=== PATIENT | male | born 1945 | race Caucasian/White ===

== ENCOUNTER 2023-03-04 14:39 | Emergency (ER) | payer MEDICARE ==
[2023-03-04 16:16] LABS: Bilirubin Negative (Negative); Blood, Urine 3+ (Negative); CAUTI Indications for Culture Dysuria,urgency,freq; Clarity Turbid (Clear); Glucose, Urine (Dipstick) Normal (Negative); Ketone, Urine Negative (Negative); Leukocyte 250 Leu/uL (Negative); Nitrite Negative (Negative); Protein, Urine (Dipstick) 10 mg/dL (Neg-Trace); RBC/HPF Greater than 50 HPF (0-3); Specific Gravity, Urine 1.014 (1.002-1.036); Squamous Epithelial None Seen HPF (0-3); Urobilinogen Normal mg/dL (Less than 2); WBC/HPF 21-50 HPF (0-3); pH, Urine 6.5 (5.0-9.0)
[2023-03-04 16:17] LABS: Bacteria/HPF 1+ HPF (None Seen)
[2023-03-04 16:18] LABS: Urine Culture Reflex Yes Yes
== END 2023-03-04 19:25 | disposition home or self-care (01) ==
LOC: ERS 14:39
DX: T83.091A Other mechanical complication of indwelling urethral catheter, initial encounter (principal); N18.9 Chronic kidney disease, unspecified
CPT/HCPCS: 51702; 81001; 87086; 99283

== ENCOUNTER 2023-04-15 21:05 | Inpatient (IN) | payer MEDICARE ==
[~2023-04-15 21:05] MED LIST: Iopamidol-370 76% 500 ML MDV (1 ML CHARGE) ONE
[2023-04-15 21:44] LABS: #Basophils 0.1 thou/uL (0.0-0.2); #Neutrophils 15.3 thou/uL (1.40-6.50); %Basophils 0.3 % (0.0-1.0); %Eosinophils 0.1 % (0.0-10.0); %Lymphocytes 9.8 % (21.0-51.0); %Monocytes 5.7 % (0.0-10.0); %Neutrophils 83.2 % (42.0-75.0); Hemoglobin 14.3 g/dL (14.0-18.0); Mean Corpuscular HGB CONC 33.3 g/dL (32.0-36.0); Mean Corpuscular Hemoglobin 29.8 pg (27.0-31.0); Mean Corpuscular Volume 89.6 fl (78.0-98.0); Mean Platelet Volume 10.1 fL (7.4-10.4); Platelet Count 190 10x3/uL (130-400); RBC Distribution Width 15.7 % (11.5-14.5); White Blood Cell (WBC) Count 18.4 10x3/uL (4.8-10.8)
[2023-04-15 21:47] LABS: Bacteria/HPF 4+ HPF (None Seen); Bilirubin Negative (Negative); Blood, Urine 1+ (Negative); CAUTI Indications for Culture Dysuria,urgency,freq; Clarity Turbid (Clear); Glucose, Urine (Dipstick) Normal (Negative); Ketone, Urine Negative (Negative); Leukocyte 500 Leu/uL (Negative); Nitrite Negative (Negative); Protein, Urine (Dipstick) 10 mg/dL (Neg-Trace); Specific Gravity, Urine 1.016 (1.002-1.036); Squamous Epithelial None Seen HPF (0-3); Urobilinogen Normal mg/dL (Less than 2); WBC/HPF Greater than 50 HPF (0-3); pH, Urine 5.5 (5.0-9.0)
[2023-04-15 21:50] LABS: Urine Culture Reflex Yes Yes
[2023-04-15 22:28] LABS: ALT (SGPT) 10 U/L (8-55); AST (SGOT) 33 U/L (5-34); Albumin 3.8 g/dL (3.4-4.8); Alkaline Phosphatase 1095 U/L (40-110); Anion Gap 14 mmol/L (10-20); BUN (Urea Nitrogen) 22 mg/dL (8.4-25.7); Bilirubin, Total 0.9 mg/dL (0.2-1.2); Calc. Creatinine Clearance 0 mL/min (70-130); Calcium 9.4 mg/dL (7.8-10.44); Carbon Dioxide 23 mmol/L (23-31); Chloride 102 mmol/L (98-107); Estimated GFR 56; Globulin 3.9 g/dL (2.4-3.5); Glucose 185 mg/dL (83-110); Potassium 4.3 mmol/L (3.5-5.1); Protein, Total 7.7 g/dL (5.8-8.1); Sodium 135 mmol/L (136-145)
[2023-04-16] MEDS ORDERED: Polyethylene Glycol 3350 17 GM Packet ONE ×2 (02:00→02:14)
[2023-04-16] MEDS ORDERED: diphenhydrAMINE 50 MG/ML VIAL ONE (02:00)
[2023-04-16] MEDS ORDERED: cefTRIAXone (ROCEPHIN) 1 GM VIAL ONE (02:00)
[2023-04-16] MEDS ORDERED: Sodium Chloride 0.9% 100 ML ONE (02:00)
[2023-04-16] MEDS ORDERED: Magnevist 469MG/ML 20 ML VIAL ONE ×3 (11:34)
[2023-04-16] MEDS ORDERED: Morphine 4 MG/ML VIAL ONE ×2 (13:34→14:58)
[2023-04-16] MEDS ORDERED: Acetaminophen 650 MG Suppository PR PRN (15:32)
[2023-04-16] MEDS ORDERED: Ondansetron PF 4 MG/2 ML Vial IVP PRN ×2 (15:32→21:52)
[2023-04-16] MEDS ORDERED: Moisturizing Cream (Eucerin) 113 GM JAR TOP PRN (15:32)
[2023-04-16] MEDS ORDERED: Sodium Chloride 0.65% Nasal 44 ML BOT EA NARE PRN (15:32)
[2023-04-16] MEDS ORDERED: Benzonatate 100 MG CAP PO PRN (15:32)
[2023-04-16] MEDS ORDERED: Ondansetron ODT 4 MG TAB PO PRN (15:32)
[2023-04-16] MEDS ORDERED: Benzocaine/Menthol 1 LOZ LOZ PO PRN (15:32)
[2023-04-16] MEDS ORDERED: diphenhydrAMINE 25 MG CAP PO PRN ×2 (15:32→21:52)
[2023-04-16] MEDS ORDERED: Acetaminophen 325 MG TAB PO PRN (15:32)
[2023-04-16] MEDS ORDERED: Piperacillin/Tazobactam 3.375 GM in Sodium Chloride 0.9% 100 ML IVPB SCH ×2 (15:45→16:00)
[2023-04-16] MEDS ORDERED: Morphine 2 MG/ML VIAL SLOW IVP PRN (17:48)
[2023-04-16] MEDS ORDERED: Bacitracin Zinc Ointment 30 gm TUBE ONE (17:55)
[2023-04-16] MEDS ORDERED: Fentanyl 250 MCG/5 ML VIAL ONE (17:55)
[2023-04-16] MEDS ORDERED: Vancomycin 1 GM VIAL ONE (17:55)
[2023-04-16] MEDS ORDERED: PROPOFOL 20 ML ONE (17:55)
[2023-04-16] MEDS ORDERED: Thrombin 5000 UNITS/5 ML VIAL ONE (17:56)
[2023-04-16] MEDS ORDERED: Lidocaine 1% PF 5 ML VIAL ONE (17:57)
[2023-04-16] MEDS ORDERED: Rocuronium Bromide 10 MG/ML (10ML VIAL) ONE (17:57)
[2023-04-16] MEDS ORDERED: CEFAZOLIN 1 GM VIAL ONE (19:02)
[2023-04-16] MEDS ORDERED: Sterile Water 20 ML ONE (19:03)
[2023-04-16] MEDS ORDERED: Bupivacaine PF 0.5% 30 ML VIAL ONE (19:10)
[2023-04-16] MEDS ORDERED: EPINEPHrine 1 MG/ML VIAL ONE (19:10)
[2023-04-16] MEDS ORDERED: Calcium Chloride 1 GM/10 ML Abboject SYRINGE ONE (19:15)
[2023-04-16] MEDS ORDERED: PHENYLEPHRINE-NS 100 MCG/ML 10 ML SYRINGE ONE (19:15)
[2023-04-16] MEDS ORDERED: Vasopressin 20 UNITS/ML VIAL ONE (19:29)
[2023-04-16] MEDS ORDERED: Dexamethasone 20 MG/5 ML VIAL ONE (19:33)
[2023-04-16] MEDS ORDERED: Vecuronium 10 MG VIAL ONE (19:43)
[2023-04-16] MEDS ORDERED: Ondansetron PF 4 MG/2 ML Vial ONE (20:43)
[2023-04-16] MEDS ORDERED: Promethazine HCl 25 MG/ML VIAL IM PRN ×2 (21:15→21:52)
[2023-04-16] MEDS ORDERED: Morphine Sulfate 2 MG/ML SYRINGE SLOW IVP PRN (21:15)
[2023-04-16] MEDS ORDERED: Ondansetron HCl/PF 4 MG/2 ML Vial IVP PRN (21:15)
[2023-04-16] MEDS ORDERED: PACU-Morphine 4MG/ML VIAL SLOW IVP PRN (21:15)
[2023-04-16] MEDS ORDERED: HYDROmorphone 2 MG/ML VIAL SLOW IVP PRN (21:15)
[2023-04-16] MEDS ORDERED: SUGAMMADEX SODIUM 200 MG/2 ML VIAL ONE (21:16)
[2023-04-16] MEDS ORDERED: Milk Of Magnesia 30 ML UDCUP PO PRN (21:29)
[2023-04-16] MEDS ORDERED: tiZANidine HCl 4 MG TAB PO PRN (21:32)
[2023-04-16] MEDS ORDERED: Naloxone HCl 0.4 mg/ml Vial IV PRN (21:52)
[2023-04-16] MEDS ORDERED: diphenhydrAMINE 50 MG/ML VIAL IVP PRN (21:52)
[2023-04-16] MEDS ORDERED: diphenhydrAMINE 50 MG/ML VIAL IM PRN (21:52)
[2023-04-16] MEDS ORDERED: Communication Order-Pharmacy FS SCH (22:00)
[2023-04-16] MEDS ORDERED: HYDROmorphone/PF 10 MG in Sodium Chloride 0.9% 99 ML IV PRN (22:15)
[2023-04-16] MEDS: Famotidine 20 MG TAB PO SCH (23:17)
[2023-04-16] MEDS: Famotidine/PF 20 mg/2ml Vial SLOW IVP SCH (23:32)
[2023-04-16] MEDS: Sodium Chloride 0.9% 1,000 ML IV SCH (23:33)
[2023-04-16] MEDS: Piperacillin/Tazobactam 3.375 GM in Sodium Chloride 0.9% 100 ML IVPB SCH (23:33)
[2023-04-17] MEDS: CEFAZOLIN 2 GM in Sodium Chloride 0.9% 100 ML IVPB SCH ×3 (03:38→20:23)
[2023-04-17 06:01] LABS: #Monocytes 0.6 thou/uL (0.11-0.59); #Neutrophils 12.6 thou/uL (1.40-6.50); %Basophils 0.1 % (0.0-1.0); %Lymphocytes 7.7 % (21.0-51.0); %Neutrophils 87.3 % (42.0-75.0); Hematocrit 35.3 % (42.0-52.0); Hemoglobin 11.7 g/dL (14.0-18.0); Mean Corpuscular HGB CONC 33.1 g/dL (32.0-36.0); Mean Corpuscular Volume 90.5 fl (78.0-98.0); Mean Platelet Volume 9.9 fL (7.4-10.4); Platelet Count 191 10x3/uL (130-400); RBC Distribution Width 15.3 % (11.5-14.5); White Blood Cell (WBC) Count 14.5 10x3/uL (4.8-10.8)
[2023-04-17] MEDS: Piperacillin/Tazobactam 3.375 GM in Sodium Chloride 0.9% 100 ML IVPB SCH ×3 (06:10→21:45)
[2023-04-17] MEDS: Dexamethasone 4 MG TAB PO SCH ×3 (06:11→18:41)
[2023-04-17 06:25] LABS: Anion Gap 13 mmol/L (10-20); BUN (Urea Nitrogen) 20 mg/dL (8.4-25.7); Calc. Creatinine Clearance 0 mL/min (70-130); Calcium 8.4 mg/dL (7.8-10.44); Carbon Dioxide 23 mmol/L (23-31); Chloride 102 mmol/L (98-107); Estimated GFR 68; Glucose 209 mg/dL (83-110); Potassium 4.6 mmol/L (3.5-5.1); Sodium 133 mmol/L (136-145)
[2023-04-17] MEDS ORDERED: Dextrose 5% in Water 1,000 ML IV PRN (07:43)
[2023-04-17] MEDS ORDERED: Glucagon 1 MG/ML KIT IM PRN (07:43)
[2023-04-17] MEDS ORDERED: HumaLOG 300 UNITS/3 ML VIAL SC PRN (07:43)
[2023-04-17] MEDS ORDERED: Dextrose 50% Abboject 50 ML SYRINGE SLOW IVP PRN (07:43)
[2023-04-17] MEDS ORDERED: Ketorolac Tromethamine 30 MG (1 mL) VIAL IVP PRN (07:53)
[2023-04-17] MEDS ORDERED: HYDROcodone/Acetaminophen 10/325 mg Tablet PO PRN (07:56)
[2023-04-17] MEDS ORDERED: Diazepam 5 MG TAB PO PRN (07:56)
[2023-04-17] MEDS ORDERED: Morphine 2 MG/ML VIAL SLOW IVP PRN (07:58)
[2023-04-17] MEDS ORDERED: tiZANidine HCl 4 MG TAB PO PRN (07:59)
[2023-04-17] MEDS ORDERED: FLU VACC QS2023(65UP)/MF59C/PF 60 MCG/0.5 ML SYRINGE IM ONE (09:00)
[2023-04-17] MEDS ORDERED: Enoxaparin 40 MG (0.4 mL) SYRINGE SC SCH ×2 (09:00→10:45)
[2023-04-17] MEDS: Famotidine 20 MG TAB PO SCH ×2 (10:23→20:26)
[2023-04-17] MEDS: Docusate 100 MG CAP PO SCH ×2 (10:23→20:25)
[2023-04-17] MEDS: Doxepin HCl 25 MG CAP PO SCH (10:25)
[2023-04-17] MEDS: Pilocarpine 1% Ophth Drops 15 ML BOT EA EYE SCH (10:34)
[2023-04-17] MEDS: Famotidine/PF 20 mg/2ml Vial SLOW IVP SCH ×2 (10:35→21:41)
[2023-04-17] MEDS ORDERED: Doxazosin Mesylate 1 MG TAB PO SCH (10:45)
[2023-04-17] MEDS: Atorvastatin Calcium 20 MG TAB PO SCH (20:25)
[2023-04-17] MEDS: Doxazosin Mesylate 1 MG TAB PO SCH (20:25)
[2023-04-17] MEDS: Zolpidem Tartrate 5 MG TAB PO SCH (20:25)
[2023-04-18] MEDS: Dexamethasone 4 MG TAB PO SCH ×5 (00:41→23:26)
[2023-04-18] MEDS: CEFAZOLIN 2 GM in Sodium Chloride 0.9% 100 ML IVPB SCH ×3 (04:04→20:12)
[2023-04-18] MEDS: Sodium Chloride 0.9% 1,000 ML IV SCH ×2 (04:09→04:10)
[2023-04-18] MEDS: Piperacillin/Tazobactam 3.375 GM in Sodium Chloride 0.9% 100 ML IVPB SCH (05:54)
[2023-04-18 06:04] LABS: Hemoglobin A1c 6.2 % (4.0-6.0)
[2023-04-18] MEDS: Bicalutamide 50 MG TAB PO SCH (09:37)
[2023-04-18] MEDS: Docusate 100 MG CAP PO SCH ×2 (09:38→20:16)
[2023-04-18] MEDS: Famotidine 20 MG TAB PO SCH ×2 (09:38→20:15)
[2023-04-18] MEDS: Doxazosin Mesylate 1 MG TAB PO SCH ×2 (09:38→20:15)
[2023-04-18] MEDS: Acetaminophen/Codeine 30-300mg Tablet PO PRN (09:38)
[2023-04-18] MEDS: Pilocarpine 1% Ophth Drops 15 ML BOT EA EYE SCH (09:39)
[2023-04-18] MEDS: Doxepin HCl 25 MG CAP PO SCH (09:39)
[2023-04-18] MEDS: Famotidine/PF 20 mg/2ml Vial SLOW IVP SCH ×2 (09:39→22:08)
[2023-04-18] MEDS: Enoxaparin 40 MG (0.4 mL) SYRINGE SC SCH (09:39)
[2023-04-18 13:34] VITALS: BMI 21.3
[2023-04-18] MEDS: HumaLOG 300 UNITS/3 ML VIAL SC PRN (18:06)
[2023-04-18] MEDS ORDERED: Polyvinyl Alcohol 1.4%/Povidone 0.6% Opth Drops EA EYE PRN (19:44)
[2023-04-18] MEDS: Zolpidem Tartrate 5 MG TAB PO SCH (20:15)
[2023-04-18] MEDS: Atorvastatin Calcium 20 MG TAB PO SCH (20:16)
[2023-04-18] MEDS: Artificial Tear Sol 15 ML BOT EA EYE PRN (23:26)
[2023-04-19] MEDS: Sodium Chloride 0.9% 1,000 ML IV SCH ×3 (02:32→16:50)
[2023-04-19] MEDS: CEFAZOLIN 2 GM in Sodium Chloride 0.9% 100 ML IVPB SCH ×3 (04:18→22:39)
[2023-04-19 06:10] LABS: #Monocytes 0.6 thou/uL (0.11-0.59); #Neutrophils 9.5 thou/uL (1.40-6.50); %Basophils 0.2 % (0.0-1.0); %Lymphocytes 10.8 % (21.0-51.0); %Neutrophils 82.7 % (42.0-75.0); Hematocrit 29.7 % (42.0-52.0); Hemoglobin 9.7 g/dL (14.0-18.0); Mean Corpuscular HGB CONC 32.7 g/dL (32.0-36.0); Mean Corpuscular Hemoglobin 29.3 pg (27.0-31.0); Mean Corpuscular Volume 89.7 fl (78.0-98.0); Mean Platelet Volume 10.6 fL (7.4-10.4); Platelet Count 181 10x3/uL (130-400); RBC Distribution Width 15.2 % (11.5-14.5); Red Blood Cell (RBC) Count 3.31 mill/uL (4.70-6.10); White Blood Cell (WBC) Count 11.4 10x3/uL (4.8-10.8)
[2023-04-19 06:36] LABS: Anion Gap 14 mmol/L (10-20); BUN (Urea Nitrogen) 24 mg/dL (8.4-25.7); Calc. Creatinine Clearance 47 mL/min (70-130); Calcium 8.3 mg/dL (7.8-10.44); Carbon Dioxide 23 mmol/L (23-31); Chloride 105 mmol/L (98-107); Estimated GFR 58; Glucose 189 mg/dL (83-110); Sodium 138 mmol/L (136-145)
[2023-04-19] MEDS: Dexamethasone 4 MG TAB PO SCH (06:43)
[2023-04-19] MEDS: HumaLOG 300 UNITS/3 ML VIAL SC PRN (06:43)
[2023-04-19] MEDS: Doxepin HCl 25 MG CAP PO SCH ×2 (09:50→22:39)
[2023-04-19] MEDS: Docusate 100 MG CAP PO SCH ×2 (09:50→22:38)
[2023-04-19] MEDS: Enoxaparin 40 MG (0.4 mL) SYRINGE SC SCH (09:51)
[2023-04-19] MEDS: Doxazosin Mesylate 1 MG TAB PO SCH ×2 (09:52→22:36)
[2023-04-19] MEDS: Bicalutamide 50 MG TAB PO SCH (09:52)
[2023-04-19] MEDS: Famotidine 20 MG TAB PO SCH ×2 (09:52→22:38)
[2023-04-19] MEDS: Pilocarpine 1% Ophth Drops 15 ML BOT EA EYE SCH (09:53)
[2023-04-19] MEDS: Famotidine/PF 20 mg/2ml Vial SLOW IVP SCH ×2 (09:54→23:16)
[2023-04-19] MEDS ORDERED: Dexamethasone 1 MG TAB PO SCH (12:00)
[2023-04-19] MEDS: Zolpidem Tartrate 5 MG TAB PO SCH (22:37)
[2023-04-19] MEDS: Atorvastatin Calcium 20 MG TAB PO SCH (22:38)
[2023-04-19] MEDS: Dexamethasone 1 MG TAB PO SCH (22:38)
[2023-04-20] MEDS: Acetaminophen/Codeine 30-300mg Tablet PO PRN (03:22)
[2023-04-20] MEDS: CEFAZOLIN 2 GM in Sodium Chloride 0.9% 100 ML IVPB SCH ×3 (03:22→22:37)
[2023-04-20] MEDS: Dexamethasone 1 MG TAB PO SCH ×4 (03:22→22:37)
[2023-04-20] MEDS: HumaLOG 300 UNITS/3 ML VIAL SC PRN ×3 (06:30→18:15)
[2023-04-20 06:42] LABS: #Monocytes 0.6 thou/uL (0.11-0.59); %Basophils 0.2 % (0.0-1.0); %Lymphocytes 14.8 % (21.0-51.0); %Monocytes 6.7 % (0.0-10.0); %Neutrophils 76.6 % (42.0-75.0); Hematocrit 30.4 % (42.0-52.0); Mean Corpuscular HGB CONC 32.9 g/dL (32.0-36.0); Mean Corpuscular Volume 91.3 fl (78.0-98.0); Mean Platelet Volume 10.6 fL (7.4-10.4); Platelet Count 202 10x3/uL (130-400); RBC Distribution Width 15.3 % (11.5-14.5); Red Blood Cell (RBC) Count 3.33 mill/uL (4.70-6.10); White Blood Cell (WBC) Count 9.2 10x3/uL (4.8-10.8)
[2023-04-20] MEDS: Sodium Chloride 0.9% 1,000 ML IV SCH ×2 (08:16→20:17)
[2023-04-20] MEDS: Famotidine 20 MG TAB PO SCH ×2 (09:17→22:36)
[2023-04-20] MEDS: Doxazosin Mesylate 1 MG TAB PO SCH ×2 (09:17→22:35)
[2023-04-20] MEDS: Pilocarpine 1% Ophth Drops 15 ML BOT EA EYE SCH (09:18)
[2023-04-20] MEDS: Bicalutamide 50 MG TAB PO SCH (09:18)
[2023-04-20] MEDS: Enoxaparin 40 MG (0.4 mL) SYRINGE SC SCH (09:18)
[2023-04-20] MEDS: Famotidine/PF 20 mg/2ml Vial SLOW IVP SCH ×2 (09:18→22:37)
[2023-04-20] MEDS: Docusate 100 MG CAP PO SCH ×2 (09:19→22:36)
[2023-04-20] MEDS: Artificial Tear Sol 15 ML BOT EA EYE PRN (09:22)
[2023-04-20] MEDS: Zolpidem Tartrate 5 MG TAB PO SCH (22:36)
[2023-04-20] MEDS: Atorvastatin Calcium 20 MG TAB PO SCH (22:36)
[2023-04-20] MEDS: Doxepin HCl 25 MG CAP PO SCH (22:37)
[2023-04-21] MEDS: Dexamethasone 1 MG TAB PO SCH ×4 (03:34→21:37)
[2023-04-21] MEDS: CEFAZOLIN 2 GM in Sodium Chloride 0.9% 100 ML IVPB SCH (03:34)
[2023-04-21 05:59] LABS: #Basophils 0.1 thou/uL (0.0-0.2); #Monocytes 0.8 thou/uL (0.11-0.59); #Neutrophils 8.5 thou/uL (1.40-6.50); %Basophils 0.4 % (0.0-1.0); %Lymphocytes 16.5 % (21.0-51.0); %Monocytes 7.2 % (0.0-10.0); %Neutrophils 72.5 % (42.0-75.0); Hemoglobin 11.4 g/dL (14.0-18.0); Mean Corpuscular HGB CONC 32.6 g/dL (32.0-36.0); Mean Corpuscular Hemoglobin 29.4 pg (27.0-31.0); Mean Corpuscular Volume 90.2 fl (78.0-98.0); Mean Platelet Volume 10.3 fL (7.4-10.4); Platelet Count 235 10x3/uL (130-400); RBC Distribution Width 15.1 % (11.5-14.5); Red Blood Cell (RBC) Count 3.88 mill/uL (4.70-6.10); White Blood Cell (WBC) Count 11.7 10x3/uL (4.8-10.8)
[2023-04-21] MEDS: HumaLOG 300 UNITS/3 ML VIAL SC PRN (06:26)
[2023-04-21 06:46] LABS: Anion Gap 15 mmol/L (10-20); BUN (Urea Nitrogen) 22 mg/dL (8.4-25.7); Calc. Creatinine Clearance 63 mL/min (70-130); Calcium 8.4 mg/dL (7.8-10.44); Carbon Dioxide 25 mmol/L (23-31); Chloride 102 mmol/L (98-107); Estimated GFR 82; Glucose 158 mg/dL (83-110); Potassium 4.5 mmol/L (3.5-5.1); Sodium 137 mmol/L (136-145)
[2023-04-21] MEDS: Artificial Tear Sol 15 ML BOT EA EYE PRN ×2 (09:56→15:21)
[2023-04-21] MEDS: Pilocarpine 1% Ophth Drops 15 ML BOT EA EYE SCH (09:56)
[2023-04-21] MEDS: Famotidine 20 MG TAB PO SCH ×2 (09:57→21:37)
[2023-04-21] MEDS: Doxazosin Mesylate 1 MG TAB PO SCH ×2 (09:57→21:37)
[2023-04-21] MEDS: Acetaminophen/Codeine 30-300mg Tablet PO PRN ×2 (09:58→21:38)
[2023-04-21] MEDS: Enoxaparin 40 MG (0.4 mL) SYRINGE SC SCH (09:58)
[2023-04-21] MEDS: Bicalutamide 50 MG TAB PO SCH (09:58)
[2023-04-21] MEDS: Docusate 100 MG CAP PO SCH ×2 (09:59→21:38)
[2023-04-21] MEDS: Sodium Chloride 0.9% 1,000 ML IV SCH ×2 (10:00→22:47)
[2023-04-21] MEDS ORDERED: Dexamethasone 1 MG TAB PO SCH (12:00)
[2023-04-21] MEDS: Polyvinyl Alcohol 1.4%/Povidone 0.6% Opth Drops EA EYE SCH ×2 (15:53→21:44)
[2023-04-21] MEDS: Doxepin HCl 25 MG CAP PO SCH (21:36)
[2023-04-21] MEDS: Zolpidem Tartrate 5 MG TAB PO SCH (21:37)
[2023-04-21] MEDS: Atorvastatin Calcium 20 MG TAB PO SCH (21:38)
[2023-04-22] MEDS: Dexamethasone 1 MG TAB PO SCH ×2 (03:10→09:06)
[2023-04-22 05:20] LABS: #Monocytes 1.1 thou/uL (0.11-0.59); #Neutrophils 10.8 thou/uL (1.40-6.50); %Basophils 0.3 % (0.0-1.0); %Eosinophils 0.1 % (0.0-10.0); %Lymphocytes 16.9 % (21.0-51.0); %Monocytes 7.4 % (0.0-10.0); %Neutrophils 70.7 % (42.0-75.0); Hemoglobin 11.3 g/dL (14.0-18.0); Mean Corpuscular HGB CONC 33.2 g/dL (32.0-36.0); Mean Corpuscular Hemoglobin 30.2 pg (27.0-31.0); Mean Corpuscular Volume 90.9 fl (78.0-98.0); Mean Platelet Volume 10.2 fL (7.4-10.4); Platelet Count 250 10x3/uL (130-400); RBC Distribution Width 15.1 % (11.5-14.5); Red Blood Cell (RBC) Count 3.74 mill/uL (4.70-6.10); White Blood Cell (WBC) Count 15.2 10x3/uL (4.8-10.8)
[2023-04-22 05:48] LABS: Anion Gap 10 mmol/L (10-20); BUN (Urea Nitrogen) 24 mg/dL (8.4-25.7); Calc. Creatinine Clearance 63 mL/min (70-130); Calcium 8.2 mg/dL (7.8-10.44); Carbon Dioxide 26 mmol/L (23-31); Chloride 103 mmol/L (98-107); Estimated GFR 82; Glucose 160 mg/dL (83-110); Sodium 135 mmol/L (136-145)
[2023-04-22] MEDS: Bicalutamide 50 MG TAB PO SCH (09:06)
[2023-04-22] MEDS: Famotidine 20 MG TAB PO SCH ×2 (09:06→20:08)
[2023-04-22] MEDS: Doxazosin Mesylate 1 MG TAB PO SCH (09:06)
[2023-04-22] MEDS: Docusate 100 MG CAP PO SCH ×2 (09:06→20:10)
[2023-04-22] MEDS: Pilocarpine 1% Ophth Drops 15 ML BOT EA EYE SCH (09:11)
[2023-04-22] MEDS: Polyvinyl Alcohol 1.4%/Povidone 0.6% Opth Drops EA EYE SCH ×3 (09:12→23:35)
[2023-04-22] MEDS: Enoxaparin 40 MG (0.4 mL) SYRINGE SC SCH (09:12)
[2023-04-22] MEDS: Sodium Chloride 0.9% 1,000 ML IV SCH (13:24)
[2023-04-22] MEDS: Acetaminophen/Codeine 30-300mg Tablet PO PRN ×2 (13:32→20:08)
[2023-04-22] MEDS: Zolpidem Tartrate 5 MG TAB PO SCH (20:08)
[2023-04-22] MEDS: Atorvastatin Calcium 20 MG TAB PO SCH (20:08)
[2023-04-22] MEDS: Senokot S 8.6-50 MG TAB PO SCH (20:08)
[2023-04-22] MEDS: Doxepin HCl 25 MG CAP PO SCH (20:10)
[2023-04-23] MEDS: Sodium Chloride 0.9% 1,000 ML IV SCH ×2 (02:48→14:55)
[2023-04-23 05:27] LABS: Hematocrit 35.2 % (42.0-52.0); Hemoglobin 11.4 g/dL (14.0-18.0); Manual Diff?? YES; Mean Corpuscular HGB CONC 32.4 g/dL (32.0-36.0); Mean Corpuscular Hemoglobin 29.4 pg (27.0-31.0); Mean Corpuscular Volume 90.7 fl (78.0-98.0); Mean Platelet Volume 10.4 fL (7.4-10.4); Platelet Count 251 10x3/uL (130-400); RBC Distribution Width 15.7 % (11.5-14.5); Red Blood Cell (RBC) Count 3.88 mill/uL (4.70-6.10); White Blood Cell (WBC) Count 16.3 10x3/uL (4.8-10.8)
[2023-04-23 05:41] LABS: Delete Auto Diff?? YES
[2023-04-23 05:45] LABS: Anion Gap 11 mmol/L (10-20); BUN (Urea Nitrogen) 26 mg/dL (8.4-25.7); Calc. Creatinine Clearance 68 mL/min (70-130); Calcium 8.1 mg/dL (7.8-10.44); Carbon Dioxide 25 mmol/L (23-31); Chloride 103 mmol/L (98-107); Estimated GFR 88; Glucose 136 mg/dL (83-110); Potassium 3.9 mmol/L (3.5-5.1); Sodium 135 mmol/L (136-145)
[2023-04-23 06:17] LABS: CellaVision Operator ID lab.abc; Eosinophils 1 % (0-10); Lymphocytes 21 % (21-51); Monocytes 7 % (0-10); Myelocyte 2 % (0-0); Neutrophil 62 % (42-75); Platelet Adequacy Comment Platelets Increased; Polychromasia SLIGHT = 2-3 cells HPF (0-2); RBC Morphology Within Normal Limits; Reactive Lymphocytes 7 % (0-10); Total Cell Count 100
[2023-04-23] MEDS: Senokot S 8.6-50 MG TAB PO SCH ×2 (08:10→20:26)
[2023-04-23] MEDS: Famotidine 20 MG TAB PO SCH ×2 (08:10→20:26)
[2023-04-23] MEDS: Docusate 100 MG CAP PO SCH ×2 (08:10→20:26)
[2023-04-23] MEDS: Polyvinyl Alcohol 1.4%/Povidone 0.6% Opth Drops EA EYE SCH ×3 (08:10→20:26)
[2023-04-23] MEDS: Enoxaparin 40 MG (0.4 mL) SYRINGE SC SCH (08:11)
[2023-04-23] MEDS: Pilocarpine 1% Ophth Drops 15 ML BOT EA EYE SCH (08:12)
[2023-04-23] MEDS: Acetaminophen/Codeine 30-300mg Tablet PO PRN (09:57)
[2023-04-23] MEDS ORDERED: Dexamethasone 1 MG TAB PO SCH (12:00)
[2023-04-23] MEDS: Bicalutamide 50 MG TAB PO SCH (13:03)
[2023-04-23] MEDS: HYDROcodone/Acetaminophen 5/325 mg Tablet PO PRN ×2 (13:08→20:45)
[2023-04-23] MEDS: Zolpidem Tartrate 5 MG TAB PO SCH (20:25)
[2023-04-23] MEDS: Doxepin HCl 25 MG CAP PO SCH (20:26)
[2023-04-23] MEDS: Atorvastatin Calcium 20 MG TAB PO SCH (20:26)
[2023-04-24] MEDS: Sodium Chloride 0.9% 1,000 ML IV SCH ×2 (02:28→18:12)
[2023-04-24 06:43] LABS: Hematocrit 35.7 % (42.0-52.0); Hemoglobin 11.7 g/dL (14.0-18.0); Manual Diff?? YES; Mean Corpuscular HGB CONC 32.8 g/dL (32.0-36.0); Mean Corpuscular Volume 91.5 fl (78.0-98.0); Mean Platelet Volume 10.2 fL (7.4-10.4); Platelet Count 237 10x3/uL (130-400); RBC Distribution Width 15.9 % (11.5-14.5); White Blood Cell (WBC) Count 18.1 10x3/uL (4.8-10.8)
[2023-04-24 07:08] LABS: Delete Auto Diff?? YES
[2023-04-24 07:22] LABS: ALT (SGPT) 7 U/L (8-55); AST (SGOT) 13 U/L (5-34); Alkaline Phosphatase 515 U/L (40-110); Anion Gap 11 mmol/L (10-20); BUN (Urea Nitrogen) 26 mg/dL (8.4-25.7); Calc. Creatinine Clearance 58 mL/min (70-130); Calcium 8.3 mg/dL (7.8-10.44); Carbon Dioxide 27 mmol/L (23-31); Chloride 102 mmol/L (98-107); Estimated GFR 75; Globulin 2.9 g/dL (2.4-3.5); Glucose 120 mg/dL (83-110); Potassium 4.3 mmol/L (3.5-5.1); Protein, Total 5.9 g/dL (5.8-8.1); Sodium 136 mmol/L (136-145)
[2023-04-24 08:16] LABS: Band 3 % (5-11); CellaVision Operator ID LAB.KW3; Eosinophils 2 % (0-10); Large Platelets 0.9 % (0-5); Lymphocytes 3 % (21-51); Monocytes 7 % (0-10); Neutrophil 81 % (42-75); Platelet Adequacy Comment Platelets Normal; Reactive Lymphocytes 6 % (0-10); Total Cell Count 108
[2023-04-24 09:17] LABS: Burr Cells SLIGHT = 2-5 cells (100X) (0-1/hpf)
[2023-04-24] MEDS: HYDROcodone/Acetaminophen 5/325 mg Tablet PO PRN ×2 (09:51→15:04)
[2023-04-24] MEDS: Bicalutamide 50 MG TAB PO SCH (09:52)
[2023-04-24] MEDS: Docusate 100 MG CAP PO SCH ×2 (09:52→21:09)
[2023-04-24] MEDS: Polyvinyl Alcohol 1.4%/Povidone 0.6% Opth Drops EA EYE SCH ×3 (09:52→21:15)
[2023-04-24] MEDS: Famotidine 20 MG TAB PO SCH ×2 (09:52→21:08)
[2023-04-24] MEDS: Senokot S 8.6-50 MG TAB PO SCH ×2 (09:52→21:09)
[2023-04-24] MEDS: Enoxaparin 40 MG (0.4 mL) SYRINGE SC SCH (09:52)
[2023-04-24] MEDS: Pilocarpine 1% Ophth Drops 15 ML BOT EA EYE SCH (09:52)
[2023-04-24] MEDS: Zolpidem Tartrate 5 MG TAB PO SCH (21:08)
[2023-04-24] MEDS: Atorvastatin Calcium 20 MG TAB PO SCH (21:08)
[2023-04-24] MEDS: Doxepin HCl 25 MG CAP PO SCH (21:09)
[2023-04-24] MEDS: Acetaminophen/Codeine 30-300mg Tablet PO PRN (21:17)
[2023-04-25] MEDS: Acetaminophen/Codeine 30-300mg Tablet PO PRN ×2 (01:33→15:51)
[2023-04-25] MEDS: Docusate 100 MG CAP PO SCH ×2 (09:45→23:43)
[2023-04-25] MEDS: Senokot S 8.6-50 MG TAB PO SCH ×2 (09:46→23:43)
[2023-04-25] MEDS: Famotidine 20 MG TAB PO SCH ×2 (09:46→20:13)
[2023-04-25] MEDS: Enoxaparin 40 MG (0.4 mL) SYRINGE SC SCH (09:46)
[2023-04-25] MEDS: Polyvinyl Alcohol 1.4%/Povidone 0.6% Opth Drops EA EYE SCH ×3 (09:46→23:55)
[2023-04-25] MEDS: Bicalutamide 50 MG TAB PO SCH (09:46)
[2023-04-25] MEDS: Pilocarpine 1% Ophth Drops 15 ML BOT EA EYE SCH (09:46)
[2023-04-25] MEDS: HYDROcodone/Acetaminophen 5/325 mg Tablet PO PRN (09:52)
[2023-04-25] MEDS: Sodium Chloride 0.9% 1,000 ML IV SCH ×2 (12:51→20:31)
[2023-04-25] MEDS ORDERED: Bisacodyl 5 MG TAB PO PRN (16:50)
[2023-04-25] MEDS ORDERED: Bisacodyl 5 MG TAB PO SCH (17:00)
[2023-04-25] MEDS: Atorvastatin Calcium 20 MG TAB PO SCH (20:13)
[2023-04-25] MEDS: Zolpidem Tartrate 5 MG TAB PO SCH (23:43)
[2023-04-25] MEDS: Doxepin HCl 25 MG CAP PO SCH (23:46)
[2023-04-26 08:10] LABS: #Eosinphils 0.1 thou/uL (0.0-0.7); #Monocytes 0.8 thou/uL (0.11-0.59); #Neutrophils 6.6 thou/uL (1.40-6.50); %Basophils 0.2 % (0.0-1.0); %Eosinophils 1.3 % (0.0-10.0); %Lymphocytes 26.3 % (21.0-51.0); %Monocytes 7.7 % (0.0-10.0); %Neutrophils 60.3 % (42.0-75.0); Hematocrit 34.5 % (42.0-52.0); Hemoglobin 11.4 g/dL (14.0-18.0); Mean Corpuscular Hemoglobin 30.4 pg (27.0-31.0); Mean Platelet Volume 9.7 fL (7.4-10.4); Platelet Count 222 10x3/uL (130-400); RBC Distribution Width 15.8 % (11.5-14.5); Red Blood Cell (RBC) Count 3.75 mill/uL (4.70-6.10); White Blood Cell (WBC) Count 10.9 10x3/uL (4.8-10.8)
[2023-04-26 08:33] LABS: ALT (SGPT) 8 U/L (8-55); AST (SGOT) 16 U/L (5-34); Alkaline Phosphatase 526 U/L (40-110); Anion Gap 14 mmol/L (10-20); BUN (Urea Nitrogen) 22 mg/dL (8.4-25.7); Bilirubin, Total 0.7 mg/dL (0.2-1.2); Calc. Creatinine Clearance 55 mL/min (70-130); Calcium 8.8 mg/dL (7.8-10.44); Carbon Dioxide 28 mmol/L (23-31); Chloride 98 mmol/L (98-107); Estimated GFR 71; Globulin 3.2 g/dL (2.4-3.5); Glucose 129 mg/dL (83-110); Potassium 4.8 mmol/L (3.5-5.1); Protein, Total 6.2 g/dL (5.8-8.1); Sodium 135 mmol/L (136-145)
[2023-04-26] MEDS: Pilocarpine 1% Ophth Drops 15 ML BOT EA EYE SCH (10:09)
[2023-04-26] MEDS: Enoxaparin 40 MG (0.4 mL) SYRINGE SC SCH (10:09)
[2023-04-26] MEDS: Polyvinyl Alcohol 1.4%/Povidone 0.6% Opth Drops EA EYE SCH ×3 (10:09→22:04)
[2023-04-26] MEDS: Famotidine 20 MG TAB PO SCH ×2 (10:09→22:03)
[2023-04-26] MEDS: Docusate 100 MG CAP PO SCH ×2 (10:09→22:02)
[2023-04-26] MEDS: Senokot S 8.6-50 MG TAB PO SCH ×2 (10:09→22:03)
[2023-04-26] MEDS: Bicalutamide 50 MG TAB PO SCH (10:09)
[2023-04-26] MEDS: Acetaminophen/Codeine 30-300mg Tablet PO PRN (12:48)
[2023-04-26] MEDS: Sodium Chloride 0.9% 1,000 ML IV SCH ×2 (14:27→22:18)
[2023-04-26] MEDS: Atorvastatin Calcium 20 MG TAB PO SCH (22:01)
[2023-04-26] MEDS: Doxazosin Mesylate 1 MG TAB PO SCH (22:02)
[2023-04-26] MEDS: Zolpidem Tartrate 5 MG TAB PO SCH (22:03)
[2023-04-26] MEDS: Doxepin HCl 25 MG CAP PO SCH (22:03)
[2023-04-27] MEDS: Polyvinyl Alcohol 1.4%/Povidone 0.6% Opth Drops EA EYE SCH ×3 (08:23→21:30)
[2023-04-27] MEDS: Senokot S 8.6-50 MG TAB PO SCH ×2 (08:24→21:28)
[2023-04-27] MEDS: Doxazosin Mesylate 1 MG TAB PO SCH ×2 (08:24→21:29)
[2023-04-27] MEDS: Famotidine 20 MG TAB PO SCH ×2 (08:24→21:29)
[2023-04-27] MEDS: Docusate 100 MG CAP PO SCH ×2 (08:24→21:28)
[2023-04-27] MEDS: Bicalutamide 50 MG TAB PO SCH (08:24)
[2023-04-27] MEDS: Pilocarpine 1% Ophth Drops 15 ML BOT EA EYE SCH (08:27)
[2023-04-27] MEDS: Enoxaparin 40 MG (0.4 mL) SYRINGE SC SCH (08:27)
[2023-04-27 10:35] LABS: #Basophils 0.1 thou/uL (0.0-0.2); #Eosinphils 0.1 thou/uL (0.0-0.7); #Monocytes 0.6 thou/uL (0.11-0.59); #Neutrophils 4.6 thou/uL (1.40-6.50); %Basophils 0.7 % (0.0-1.0); %Eosinophils 1.7 % (0.0-10.0); %Monocytes 8.4 % (0.0-10.0); Hematocrit 35.1 % (42.0-52.0); Mean Corpuscular HGB CONC 31.3 g/dL (32.0-36.0); Mean Corpuscular Hemoglobin 29.9 pg (27.0-31.0); Mean Corpuscular Volume 95.4 fl (78.0-98.0); Mean Platelet Volume 10.1 fL (7.4-10.4); Platelet Count 192 10x3/uL (130-400); RBC Distribution Width 15.7 % (11.5-14.5); Red Blood Cell (RBC) Count 3.68 mill/uL (4.70-6.10); White Blood Cell (WBC) Count 7.6 10x3/uL (4.8-10.8)
[2023-04-27 10:50] LABS: Anion Gap 13 mmol/L (10-20); BUN (Urea Nitrogen) 28 mg/dL (8.4-25.7); Calc. Creatinine Clearance 56 mL/min (70-130); Calcium 8.8 mg/dL (7.8-10.44); Carbon Dioxide 22 mmol/L (23-31); Chloride 100 mmol/L (98-107); Estimated GFR 72; Glucose 143 mg/dL (83-110); Potassium 4.3 mmol/L (3.5-5.1); Sodium 131 mmol/L (136-145)
[2023-04-27] MEDS: HYDROcodone/Acetaminophen 5/325 mg Tablet PO PRN (12:32)
[2023-04-27] MEDS: Sodium Chloride 0.9% 1,000 ML IV SCH (12:36)
[2023-04-27] MEDS: Zolpidem Tartrate 5 MG TAB PO SCH (21:28)
[2023-04-27] MEDS: Atorvastatin Calcium 20 MG TAB PO SCH (21:28)
[2023-04-27] MEDS: Doxepin HCl 25 MG CAP PO SCH (21:29)
[2023-04-27] MEDS: Acetaminophen/Codeine 30-300mg Tablet PO PRN (21:30)
[2023-04-28] MEDS: Sodium Chloride 0.9% 1,000 ML IV SCH ×2 (02:04→14:25)
[2023-04-28 05:45] LABS: #Basophils 0.1 thou/uL (0.0-0.2); #Eosinphils 0.2 thou/uL (0.0-0.7); #Monocytes 0.8 thou/uL (0.11-0.59); #Neutrophils 5.3 thou/uL (1.40-6.50); %Basophils 0.7 % (0.0-1.0); %Lymphocytes 26.8 % (21.0-51.0); %Monocytes 8.4 % (0.0-10.0); %Neutrophils 59.6 % (42.0-75.0); Hematocrit 32.5 % (42.0-52.0); Hemoglobin 10.3 g/dL (14.0-18.0); Mean Corpuscular HGB CONC 31.7 g/dL (32.0-36.0); Mean Platelet Volume 9.8 fL (7.4-10.4); Platelet Count 206 10x3/uL (130-400); RBC Distribution Width 15.3 % (11.5-14.5); Red Blood Cell (RBC) Count 3.55 mill/uL (4.70-6.10); White Blood Cell (WBC) Count 8.9 10x3/uL (4.8-10.8)
[2023-04-28 05:47] LABS: Mean Corpuscular Volume 91.5 fl (78.0-98.0)
[2023-04-28 06:22] LABS: ALT (SGPT) 8 U/L (8-55); AST (SGOT) 16 U/L (5-34); Albumin 2.9 g/dL (3.4-4.8); Alkaline Phosphatase 511 U/L (40-110); Anion Gap 9 mmol/L (10-20); BUN (Urea Nitrogen) 26 mg/dL (8.4-25.7); Bilirubin, Total 0.6 mg/dL (0.2-1.2); Calc. Creatinine Clearance 65 mL/min (70-130); Calcium 8.8 mg/dL (7.8-10.44); Carbon Dioxide 24 mmol/L (23-31); Chloride 106 mmol/L (98-107); Estimated GFR 86; Globulin 2.8 g/dL (2.4-3.5); Glucose 125 mg/dL (83-110); Potassium 4.3 mmol/L (3.5-5.1); Protein, Total 5.7 g/dL (5.8-8.1); Sodium 135 mmol/L (136-145)
[2023-04-28] MEDS: Bicalutamide 50 MG TAB PO SCH (08:14)
[2023-04-28] MEDS: Senokot S 8.6-50 MG TAB PO SCH (08:14)
[2023-04-28] MEDS: Doxazosin Mesylate 1 MG TAB PO SCH (08:14)
[2023-04-28] MEDS: Polyvinyl Alcohol 1.4%/Povidone 0.6% Opth Drops EA EYE SCH ×2 (08:15→14:22)
[2023-04-28] MEDS: Pilocarpine 1% Ophth Drops 15 ML BOT EA EYE SCH (08:15)
[2023-04-28] MEDS: Enoxaparin 40 MG (0.4 mL) SYRINGE SC SCH (08:15)
[2023-04-28] MEDS: Famotidine 20 MG TAB PO SCH (08:15)
[2023-04-28] MEDS: Docusate 100 MG CAP PO SCH (08:15)
[2023-04-28 18:12] VITALS: BP 106/65; TEMP 98.7
== END 2023-04-28 18:24 | DRG 28 ==
LOC: ERS 21:05 → ERHOLD 04-16 13:48 → MSONC 04-16 17:32
PROVIDERS: ADMIT Family Medicine; ATTEND Internal Medicine
PROC: 00NW0ZZ Release Cervical Spinal Cord, Open Approach (ICD-10-PCS; principal; 2023-04-16)
PROC: 3E033XZ Introduction of Vasopressor into Peripheral Vein, Percutaneous Approach (ICD-10-PCS; 2023-04-16)
PROC: 00BW0ZZ Excision of Cervical Spinal Cord, Open Approach (ICD-10-PCS; 2023-04-16)
DX: C79.49 Secondary malignant neoplasm of other parts of nervous system (principal); G82.50 Quadriplegia, unspecified; C79.51 Secondary malignant neoplasm of bone; M84.48XA Pathological fracture, other site, initial encounter for fracture; M50.01 Cervical disc disorder with myelopathy, high cervical region; G95.9 Disease of spinal cord, unspecified; G83.4 Cauda equina syndrome; T83.511A Infection and inflammatory reaction due to indwelling urethral catheter, initial encounter; G95.20 Unspecified cord compression; M48.02 Spinal stenosis, cervical region; Z51.5 Encounter for palliative care; Z66 Do not resuscitate; C61 Malignant neoplasm of prostate; R82.81 Pyuria; E11.22 Type 2 diabetes mellitus with diabetic chronic kidney disease; R59.0 Localized enlarged lymph nodes; N32.89 Other specified disorders of bladder; N18.30 Chronic kidney disease, stage 3 unspecified; K59.00 Constipation, unspecified; D72.825 Bandemia; E11.65 Type 2 diabetes mellitus with hyperglycemia; N40.1 Benign prostatic hyperplasia with lower urinary tract symptoms; B96.20 Unspecified Escherichia coli [E. coli] as the cause of diseases classified elsewhere; G47.00 Insomnia, unspecified; D64.89 Other specified anemias; Z98.890 Other specified postprocedural states; Z79.899 Other long term (current) drug therapy; Z80.3 Family history of malignant neoplasm of breast; Y84.6 Urinary catheterization as the cause of abnormal reaction of the patient, or of later complication, without mention of misadventure at the time of the procedure; R33.8 Other retention of urine
CPT/HCPCS: 36415; 36416; 71260; 72156; 72157; 72158; 74177; 78306; 80048; 80053; 81001; 83036; 84145; 84153; 85025; 87040; 87077; 87086; 87186; 88300; 88305; 88307; 88311; 88341; 88342; 93005; 93970; 96361; 96365; 96375; A9503; A9579; J0171; J0690; J0696; J1100; J1200; J1650; J1815; J1885; J2270; J2272; J2405; J2543; J2704; J3010; J3370; J3490; J7050; J8540; Q9967; S0020; S0028